=== PATIENT | male | born 1975 | race African-American/Black ===

== ENCOUNTER 2018-09-14 22:34 | Emergency (ER) | payer OTHER ==
[~2018-09-14] VITALS: Ht 180.3 cm; Wt 66.9 kg
[2018-09-14] MEDS ORDERED: DIPH,PERTUSS(ACELL),TET VAC/PF 0.5 ML IM-VACC ONE ×2 (22:49→23:00)
[2018-09-14] MEDS ORDERED: LIDOCAINE 1%-EPI 1:100K, 30ML ONE (22:49)
[2018-09-14] MEDS ORDERED: LIDOCAINE 1%-EPI 1:100K, 20ML SQ ONE (23:00)
[2018-09-14] MEDS ORDERED: IBUPROFEN 200 MG TABLET ONE (23:13)
[2018-09-14] MEDS ORDERED: ACETAMINOPHEN 325 MG TABLET ONE (23:13)
[2018-09-14] MEDS ORDERED: L.E.T SOLUTION TP ONE ×2 (23:13→23:30)
[2018-09-14] MEDS ORDERED: IBUPROFEN 200 MG TABLET PO ONE (23:30)
[2018-09-14] MEDS ORDERED: ACETAMINOPHEN 325 MG TABLET PO ONE (23:30)
[2018-09-14] MEDS ORDERED: BACITRACIN ZINC OINT 500U/GM, 0.9 GM ONE (23:39)
[2018-09-15 00:17] VITALS: BP 116/74
== END 2018-09-15 00:37 | disposition home or self-care (01) ==
LOC: ED 09-15 00:35
DX: S81.021A Laceration with foreign body, right knee, initial encounter (principal); S61.422A Laceration with foreign body of left hand, initial encounter; W19.XXXA Unspecified fall, initial encounter; Y93.02 Activity, running; Y92.410 Unspecified street and highway as the place of occurrence of the external cause; Y99.8 Other external cause status
CPT/HCPCS: 13120; 13132; 13133; 90471; 90715; 99285